=== PATIENT | male | born 1985 | race Hispanic/Latino ===

== ENCOUNTER 2018-02-13 19:14 | Emergency (ER) | payer OTHER ==
--- NOTE | 2018-02-13 22:35 | ER ---
Nurse's Notes [facility] Name: Mark Meza Jr Age: 32 yrs Sex: Male : 1985 Arrival Date: 02/13/2018 Time: 19:19 Bed 9 Private MD: Diagnosis: Pain in left hand Presentation: 02/13 19:37 Presenting complaint: Patient states: throat pain, possibly popcorn stuck in his left ak1 side of his throat from 4 days [employer]IDENCE [employer]. pt c/o left hand and left thumb pain X1 week, full ROM to left hand and all fingers on left hand. Transition of care: patient was not received from another setting of care. Onset of symptoms is unknown. Risk Assessment: Do you want to hurt yourself or someone else? Patient reports no desire to harm self or others. Initial Sepsis Screen: Does the patient meet any 2 criteria? No. Patient's initial sepsis screen is negative. Does the patient have a suspected source of infection? No. Patient's initial sepsis screen is negative. Care prior to arrival: None. 19:37 Method Of Arrival: Ambulatory ak1 19:37 Acuity: REGINE 4 ak1 Triage Assessment: 19:38 General: Appears in no apparent distress. Behavior is calm, cooperative. Pain: ak1 Complains of pain in left hand, throat. EENT: Throat no resp distress noted. Neuro: No deficits noted. Cardiovascular: No deficits noted. Respiratory: No deficits noted. GI: No signs and/or symptoms were reported involving the gastrointestinal system. : No signs and/or symptoms were reported regarding the genitourinary system. Derm: No signs and/or symptoms reported regarding the dermatologic system. Musculoskeletal: Range of motion: intact in all extremities. Injury Description: no injury. Historical: - Allergies: 19:38 No Known Allergies; ak1 - Home Meds: 19:38 None [Active]; ak1 - PMHx: 19:38 None; ak1 - PSHx: 19:38 None; ak1 - Immunization history:: Adult Immunizations unknown. - Social history:: Smoking status: Patient uses tobacco products, smokes one-half pack cigarettes per day. - Ebola Screening: : No symptoms or risks identified at this time. Screenin:39 Abuse screen: Denies threats or abuse. Denies injuries from another. Nutritional ak1 screening: No deficits noted. Tuberculosis screening: No symptoms or risk factors identified. Fall Risk None identified. Assessment: 20:43 General: Appears in no apparent distress. comfortable, Behavior is calm, cooperative, wh appropriate for age. Pain: Complains of pain in left wrist and left thumb from falling 2 weeks ago. Neuro: Level of Consciousness is awake, alert, obeys commands, Behavioral Instructor are equal bilaterally. Cardiovascular: Denies chest pain. Respiratory: Airway is patent Respiratory effort is even, unlabored, Respiratory pattern is regular, symmetrical. GI: No signs and/or symptoms were reported involving the gastrointestinal system. : No signs and/or symptoms were reported regarding the genitourinary system. EENT: Throat is pink Reports states something is stuck in his throat like a popcorn kernel, irritation when swallowing, says been in his throat for 4 days now. Derm: Skin is intact, is healthy with good turgor, Skin is pink, warm \T\ dry. normal. Musculoskeletal: Range of motion: intact in all extremities. 21:58 Reassessment: Patient appears in no apparent distress at this time. Patient and/or wh family updated on plan of care and expected duration. Pain level reassessed. Patient is alert, oriented x 3, equal unlabored respirations, skin warm/dry/pink. 22:54 Reassessment: Patient appears in no apparent distress at this time. Patient and/or wh family updated on plan of care and expected duration. Pain level reassessed. Patient is alert, oriented x 3, equal unlabored respirations, skin warm/dry/pink. Vital Signs: 19:35 BP 139 / 67; Pulse 87; Resp 16; Temp 97.6; Pulse Ox 98% on R/A; Weight 131.09 kg; ak1 Height 5 ft. 11 in. (180.34 cm); Pain 8/10; 20:46 BP 124 / 68; wh 19:35 Body Mass Index 40.31 (131.09 kg, 180.34 cm) ak1 ED Course: 19:19 Patient arrived in ED. al2 19:38 Triage completed. ak1 19:38 Arm band placed on Patient placed in waiting room, Patient notified of wait time. ak1 20:43 Елена Lujan is Primary Nurse. wh 20:45 Patient has correct armband on for positive identification. Bed in low position. Call wh light in reach. Side rails up X 1. NIBP on. 21:09 Tyrese Bautista PA is PHCP. jr8 21:09 Richard Stephens MD is Attending Physician. jr8 22:29 X-ray completed. Portable x-ray completed in exam room. Patient tolerated procedure mh1 well. 22:29 XRAY Hand LEFT 3 View In Process Unspecified. EDMS 22:54 No provider procedures requiring assistance completed. Patient did not have IV access wh during this emergency room visit. Administered Medications: No medications were administered Outcome: 22:34 Discharge ordered by . jr8 22:54 Discharged to home ambulatory. 22:54 Condition: good 22:54 Discharge instructions given to patient, Instructed on discharge instructions, follow up and referral plans. medication usage, Demonstrated understanding of instructions, follow-up care, medications, POC Hand Contusion Prescriptions given X 1. 22:55 Patient left the ED. Signatures: Dispatcher [employer] EDNM Mireya Bo [facility] Tyrese Bautista PA PA jr8 Philomena Carlisle RN RN ak1 Елена Lujan Emilee, Nena ye2 Corrections: (The following items were deleted from the chart) 22:54 21:58 Reassessment: Patient appears in no apparent distress at this time. Patient wh and/or family updated on plan of care and expected duration. Pain level reassessed. Patient is alert/active/playful, equal unlabored respirations, skin warm/dry/pink. wh
--- NOTE | 2018-02-13 22:36 | EDPHYS ---
Physician Documentation [facility] Name: Mark Meza Jr Age: 32 yrs Sex: Male : 1985 Arrival Date: 02/13/2018 Time: 19:19 Bed 9 Private MD: ED Physician Richard Stephens HPI: 02/13 21:52 This 32 yrs old Male presents to ER via Ambulatory with complaints of Thumb jr8 Injury, Foreign Body In Throat. 21:52 Patient comes in with two complaints. Stated that he slept on left hand wrong a few jr8 days ago and since then has had pain that will not go away. Stated that he also feels that maybe a piece of popcorn is stuck in throat and cannot get it out. Is able to eat and drink otherwise . Severity of symptoms: At their worst the symptoms were mild in the emergency department the symptoms are unchanged. The patient has not experienced similar symptoms in the past. The patient has not recently seen a physician. Historical: - Allergies: 19:38 No Known Allergies; ak1 - Home Meds: 19:38 None [Active]; ak1 - PMHx: 19:38 None; ak1 - PSHx: 19:38 None; ak1 - Immunization history:: Adult Immunizations unknown. - Social history:: Smoking status: Patient uses tobacco products, smokes one-half pack cigarettes per day. - Ebola Screening: : No symptoms or risks identified at this time. ROS: 21:52 Eyes: Negative for injury, pain, redness, and discharge, Neck: Negative for injury, jr8 pain, and swelling, Cardiovascular: Negative for chest pain, palpitations, and edema, Respiratory: Negative for shortness of breath, cough, wheezing, and pleuritic chest pain, Abdomen/GI: Negative for abdominal pain, nausea, vomiting, diarrhea, and constipation, Back: Negative for injury and pain, Skin: Negative for injury, rash, and discoloration, Neuro: Negative for headache, weakness, numbness, tingling, and seizure. 21:52 ENT: Positive for sore throat, Negative for drainage from ear(s), ear pain, Gum pain nasal discharge, rhinorrhea, sinus congestion, dental pain, difficulty swallowing, difficulty handling secretions, hoarseness. 21:52 MS/extremity: Positive for pain, tenderness, of the left hand. Exam: 21:52 Eyes: Pupils equal round and reactive to light, extra-ocular motions intact. Lids and jr8 lashes normal. Conjunctiva and sclera are non-icteric and not injected. Cornea within normal limits. Periorbital areas with no swelling, redness, or edema. ENT: Nares patent. No nasal discharge, no septal abnormalities noted. Tympanic membranes are normal and external auditory canals are clear. Oropharynx with no redness, swelling, or masses, exudates, or evidence of obstruction, uvula midline. Mucous membranes moist. Neck: Trachea midline, no thyromegaly or masses palpated, and no cervical lymphadenopathy. Supple, full range of motion without nuchal rigidity, or vertebral point tenderness. No Meningismus. Cardiovascular: Regular rate and rhythm with a normal S1 and S2. No gallops, murmurs, or rubs. Normal PMI, no JVD. No pulse deficits. Respiratory: Lungs have equal breath sounds bilaterally, clear to auscultation and percussion. No rales, rhonchi or wheezes noted. No increased work of breathing, no retractions or nasal flaring. Abdomen/GI: Soft, non-tender, with normal bowel sounds. No distension or tympany. No guarding or rebound. No evidence of tenderness throughout. Back: No spinal tenderness. No costovertebral tenderness. Full range of motion. Skin: Warm, dry with normal turgor. Normal color with no rashes, no lesions, and no evidence of cellulitis. Neuro: Awake and alert, GCS 15, oriented to person, place, time, and situation. Cranial nerves II-XII grossly intact. Motor strength 5/5 in all extremities. Sensory grossly intact. Cerebellar exam normal. Normal gait. 21:52 Musculoskeletal/extremity: Extremities: grossly normal except: noted in the left hand: pain, tenderness, over cmc region of left hand, ROM: intact in all extremities, Circulation is intact in all extremities. Sensation intact. Vital Signs: 19:35 BP 139 / 67; Pulse 87; Resp 16; Temp 97.6; Pulse Ox 98% on R/A; Weight 131.09 kg; ak1 Height 5 ft. 11 in. (180.34 cm); Pain 8/10; 20:46 BP 124 / 68; wh 19:35 Body Mass Index 40.31 (131.09 kg, 180.34 cm) ak1 MDM: 21:09 Patient medically screened. jr8 22:32 Data reviewed: vital signs, nurses notes, radiologic studies, plain films, and as a jr8 result, I will discharge patient. Data interpreted: Pulse oximetry: on room air is 98 %. Interpretation: normal. Counseling: I had a detailed discussion with the patient and/or guardian regarding: the historical points, exam findings, and any diagnostic results supporting the discharge/admit diagnosis, radiology results, the need for outpatient follow up, an ENT specialist, a orthopedic surgeon, to return to the emergency department if symptoms worsen or persist or if there are any questions or concerns that arise at home. 22:32 ED course: Discussed with patient that if he continues to have FB sensation in throat jr8 that he needs to follow up with ENT for scope. That we cannot do that in ED. That he is able to eat and drink with no problem so no acute obstruction is present. Patient good with this and will follow up. With attention to the hand. No acute findings. Will put on Ibuprofen. If with continued pain to f/u with ortho . 02/13 21:19 Order name: XRAY Hand LEFT 3 View; Complete Time: 22:51 jr8 Administered Medications: No medications were administered Disposition: 02/14 21:16 Co-signature as Attending Physician, Richard Stephens MD Available for consultation at ps1 all times. Disposition: 02/13/18 22:34 Discharged to Home. Impression: Pain in left hand. - Condition is Stable. - Discharge Instructions: Hand Contusion. - Prescriptions for Ibuprofen 800 mg Oral Tablet - take 1 tablet by ORAL route every 12 hours As needed take with food; 20 tablet. - Medication Reconciliation Form, Thank You Letter, Antibiotic Education, Prescription Opioid Use form. - Follow up: Private Physician; When: 5 - 6 days; Reason: Recheck today's complaints, Continuance of care, Re-evaluation by your physician. - Problem is new. - Symptoms are unchanged. Signatures: Dispatcher [employer] EDMS Tyrese Bautista PA PA jr8 Philomena Carlisle, RN RN ak1 Елена Lujan Phillip, MD MD ps1 Corrections: (The following items were deleted from the chart) 02/13 22:55 22:34 02/13/2018 22:34 Discharged to Home. Impression: Pain in left hand. Condition is wh Stable. Forms are Medication Reconciliation Form, Thank You Letter, Antibiotic Education, Prescription Opioid Use. Follow up: Private Physician; When: 5 - 6 days; Reason: Recheck today's complaints, Continuance of care, Re-evaluation by your physician. Problem is new. Symptoms are unchanged. jr8
--- NOTE | 2018-02-13 22:50 | RAD REPORT ---
EXAM DESCRIPTION: RAD - Hand Left 3 View - 02/13/2018 10:33 pm CLINICAL HISTORY: PAIN COMPARISON: No comparisons FINDINGS: No bone or joint abnormality is detected.
== END 2018-02-13 22:55 | disposition home or self-care (01) ==
LOC: ER 19:14
DX: M79.642 Pain in left hand (principal); F17.210 Nicotine dependence, cigarettes, uncomplicated
CPT/HCPCS: 99283